=== PATIENT | male | born 1985 | race Hispanic/Latino ===

== ENCOUNTER 2021-11-24 13:57 | Emergency (ER) | payer SELFPAY ==
--- OUTSIDE RECORDS SUMMARY | 2021-11-24 14:00 | XMS REPORT | Continuity of Care Document ---
:1985 Author Organization [facility] Address [address] [place] [id number] Care Team Providers Name Role Phone [facility]LL[facility] Attending Clinician Unavailable Problems This patient has no known problems. Allergies, Adverse Reactions, Alerts This patient has no known allergies or adverse reactions. Medications This patient has no known medications. Procedures This patient has no known procedures. Encounters Start End Encounter Admission Attending Care Care Encounter Source Date/Time Date/Time Type Type Clinicians Facility Department ID 2020-06-20 2020-06-20 Outpatient [facility] RMLN [id number] [facility] Donovan 11:12:00 11:12:00 [id number] [facility] Results This patient has no known results.
[2021-11-24] MEDS ORDERED: IPRATROPIUM BROM 0.5MG/2.5ML ONE (14:47)
[2021-11-24] MEDS ORDERED: ALBUTEROL 2.5 MG/3 ML NEB SOL ONE (14:47)
--- NOTE | 2021-11-24 15:23 | RAD REPORT ---
EXAM DESCRIPTION: Lisa Single View11/24/2021 3:13 pm CLINICAL HISTORY: cough COMPARISON: none FINDINGS: The lungs appear clear of acute infiltrate. The heart is normal size IMPRESSION: No acute abnormalities displayed
--- NOTE | 2021-11-24 15:49 | EDPHYS ---
Physician Documentation [facility] Name: Raman Weiss Age: 36 yrs Sex: Male : 1985 Arrival Date: 11/24/2021 Time: 14:01 Bed 12 Private MD: ED Physician Berny Somers HPI: 11/24 15:44 This 36 yrs old Male presents to ER via Ambulatory with complaints of inhaled kb chemicals. 15:45 The patient has shortness of breath at rest, that occurred at home. Onset: The kb symptoms/episode began/occurred just prior to arrival. Duration: The symptoms are continuous. The patient's shortness of breath has no apparent modifying factors. Associated signs and symptoms: Pertinent positives: irritation in throat. Severity of symptoms: At their worst the symptoms were mild moderate in the emergency department the symptoms are unchanged. The patient has not experienced similar symptoms in the past. The patient has not recently seen a physician. Pt states he was using a lot of bleach to clean his mobile home and inhaled a lot of fumes. States he vomited once and has had some shortness of breath and irritation in his throat. . Historical: - Allergies: 14:18 No Known Allergies; ab2 - PMHx: 14:18 None; ab2 - PSHx: 14:18 None; ab2 - Immunization history:: Adult Immunizations up to date. - Social history:: Smoking status: Patient reports the use of cigarette tobacco products, smokes one pack cigarettes per day. ROS: 15:45 Constitutional: Negative for fever, chills, and weight loss. kb 15:45 ENT: Positive for throat irritation. 15:45 Respiratory: Positive for shortness of breath. 15:45 All other systems are negative. Exam: 15:47 Constitutional: This is a well developed, well nourished patient who is awake, alert, kb and in no acute distress. Head/Face: Normocephalic, atraumatic. ENT: Moist Mucous membranes Cardiovascular: Regular rate and rhythm with a normal S1 and S2. No gallops, murmurs, or rubs. No pulse deficits. Skin: Warm, dry with normal turgor. Normal color. MS/ Extremity: Pulses equal, no cyanosis. Neurovascular intact. Full, normal range of motion. Neuro: Awake and alert, GCS 15, oriented to person, place, time, and situation. Moves all extremities. Normal gait. Psych: Awake, alert, with orientation to person, place and time. Behavior, mood, and affect are within normal limits. 15:47 Respiratory: the patient does not display signs of respiratory distress, Respirations: normal, Breath sounds: wheezing: expiratory that is mild, is heard in the left posterior upper lobe and right posterior upper lobe. Vital Signs: 14:16 BP 129 / 72; Pulse 63; Resp 18; Temp 97.8; Pulse Ox 98% on R/A; Weight 122.47 kg; ab2 Height 5 ft. 10 in. (177.80 cm); Pain 7/10; 15:56 BP 121 / 73; Pulse 69; Resp 17; Pulse Ox 99% ; ab2 14:16 Body Mass Index 38.74 (122.47 kg, 177.80 cm) ab2 MDM: 14:34 Patient medically screened. kb 15:47 Data reviewed: vital signs, nurses notes. Data interpreted: Pulse oximetry: on room air kb is 98 %. Interpretation: normal. Counseling: I had a detailed discussion with the patient and/or guardian regarding: the historical points, exam findings, and any diagnostic results supporting the discharge/admit diagnosis, radiology results, the need for outpatient follow up, a family practitioner, to return to the emergency department if symptoms worsen or persist or if there are any questions or concerns that arise at home. 11/24 14:41 Order name: Chest Single View XRAY; Complete Time: 15:30 kb Administered Medications: 14:47 Drug: Albuterol 2.5 mg Route: Inhalation; ab2 15:00 Follow up: Response: No adverse reaction ab2 14:47 Drug: AtroVENT (ipratropium) Aerosol 0.5 mg Route: Inhalation; ab2 15:00 Follow up: Response: No adverse reaction ab2 Disposition Summary: 11/24/21 15:48 Discharge Ordered Location: Home Condition: Stable Diagnosis - Dyspnea - s/p bleach fume inhalation Followup: kb - With: Emergency Department - When: As needed - Reason: Worsening of condition Followup: kb - With: Private Physician - When: 2 - 3 days - Reason: Recheck today's complaints, Continuance of care, Re-evaluation by your physician Discharge Instructions: - Discharge Summary Sheet kb - Shortness of Breath, Adult, [id number] kb - Chemical Inhalation Injury, Adult kb Forms: - Medication Reconciliation Form kb - Thank You Letter kb - Antibiotic Education kb - Prescription Opioid Use kb Prescriptions: - albuterol sulfate 90 mcg/actuation Inhalation HFA aerosol inhaler - inhale 2 puff by INHALATION route every 4-6 hours As needed; 1 Inhaler; kb Refills: 0, Product Selection Permitted Addendum: 11/29/2021 18:59 Co-signature as Attending Physician, Berny Somers MD I agree with the assessment and c herring plan of care. Signatures: Dispatcher [employer] EDMaryanne Freitas, REGISTERED NURSES-C REGISTERED NURSES-Berny August MD MD cha Bleininger, Alexis ab2
--- NOTE | 2021-11-24 15:49 | ER ---
Nurse's Notes [facility] Name: Raman Weiss Age: 36 yrs Sex: Male : 1985 Arrival Date: 11/24/2021 Time: 14:01 Bed 12 Private MD: Diagnosis: Dyspnea-s/p bleach fume inhalation Presentation: 11/24 14:16 Chief complaint: Patient states: "I was doing some cleaning with bleach and I inhaled a ab2 bunch of it. Now my throat hurts and I feel SOB.". Coronavirus screen: Vaccine status: Patient reports receiving the 2nd dose of the covid vaccine. Client denies travel out of the [place] in the last 14 days. At this time, the client does not indicate any symptoms associated with coronavirus-19. Ebola Screen: Patient negative for fever greater than or equal to 101.5 degrees Fahrenheit, and additional compatible Ebola Virus Disease symptoms Patient denies exposure to infectious person. Patient denies travel to an Ebola-affected area in the 21 days before illness onset. No symptoms or risks identified at this time. Initial Sepsis Screen: Does the patient meet any 2 criteria? No. Patient's initial sepsis screen is negative. Does the patient have a suspected source of infection? No. Patient's initial sepsis screen is negative. Risk Assessment: Do you want to hurt yourself or someone else? Patient reports no desire to harm self or others. Onset of symptoms is unknown. 14:16 Method Of Arrival: Ambulatory ab2 14:16 Acuity: JOSE 4 ab2 Triage Assessment: 14:18 General: Appears in no apparent distress. uncomfortable, Behavior is calm, cooperative, ab2 appropriate for age. Pain: Complains of pain in throat Pain currently is 7 out of 10 on a pain scale. EENT: Reports pain in throat. Neuro: Level of Consciousness is awake, alert, obeys commands, Oriented to person, place, time, situation, Appropriate for age Editorial Manager are equal bilaterally Moves all extremities. Gait is steady, Speech is normal, Facial symmetry appears normal. Cardiovascular: Reports shortness of breath, Denies chest pain, Patient's skin is warm and dry. Respiratory: Airway is patent Respiratory effort is even, unlabored, Respiratory pattern is regular, symmetrical, Breath sounds with wheezes bilaterally. GI: No deficits noted. No signs and/or symptoms were reported involving the gastrointestinal system. : No deficits noted. No signs and/or symptoms were reported regarding the genitourinary system. Historical: - Allergies: 14:18 No Known Allergies; ab2 - PMHx: 14:18 None; ab2 - PSHx: 14:18 None; ab2 - Immunization history:: Adult Immunizations up to date. - Social history:: Smoking status: Patient reports the use of cigarette tobacco products, smokes one pack cigarettes per day. Screenin:46 Abuse screen: Denies threats or abuse. Denies injuries from another. Nutritional ab2 screening: No deficits noted. Tuberculosis screening: No symptoms or risk factors identified. Fall Risk None identified. Assessment: 14:45 General: Appears in no apparent distress. uncomfortable, Behavior is calm, cooperative, ab2 appropriate for age. Pain: Complains of pain in throat Pain currently is 7 out of 10 on a pain scale. Neuro: Level of Consciousness is awake, alert, obeys commands, Oriented to person, place, time, situation, Appropriate for age Editorial Manager are equal bilaterally Moves all extremities. Gait is steady, Speech is normal, Facial symmetry appears normal. Cardiovascular: Reports shortness of breath, Denies chest pain. Respiratory: Airway is patent Respiratory effort is even, unlabored, Respiratory pattern is regular, symmetrical, Breath sounds with wheezes bilaterally. GI: No deficits noted. No signs and/or symptoms were reported involving the gastrointestinal system. Abdomen is round non-distended. : No deficits noted. No signs and/or symptoms were reported regarding the genitourinary system. Derm: Skin is intact, is healthy with good turgor, Skin is pink, warm \\T\\ dry. Vital Signs: 14:16 BP 129 / 72; Pulse 63; Resp 18; Temp 97.8; Pulse Ox 98% on R/A; Weight 122.47 kg; ab2 Height 5 ft. 10 in. (177.80 cm); Pain 7/10; 15:56 BP 121 / 73; Pulse 69; Resp 17; Pulse Ox 99% ; ab2 14:16 Body Mass Index 38.74 (122.47 kg, 177.80 cm) ab2 ED Course: 14:01 Patient arrived in ED. mr 14:18 Triage completed. ab2 14:19 Arm band placed on right wrist. ab2 14:20 Maryanne Lewis FNP-C is PHCP. kb 14:20 Berny Somers MD is Attending Physician. kb 14:45 Remi Mai is Primary Nurse. ab2 14:46 No provider procedures requiring assistance completed. Patient did not have IV access ab2 during this emergency room visit. 14:47 Patient has correct armband on for positive identification. Bed in low position. Call ab2 light in reach. Side rails up X2. 15:15 Chest Single View XRAY In Process Unspecified. EDMS Administered Medications: 14:47 Drug: Albuterol 2.5 mg Route: Inhalation; ab2 15:00 Follow up: Response: No adverse reaction ab2 14:47 Drug: AtroVENT (ipratropium) Aerosol 0.5 mg Route: Inhalation; ab2 15:00 Follow up: Response: No adverse reaction ab2 Outcome: 15:48 Discharge ordered by MD. kb 15:56 Discharged to home ambulatory. ab2 15:56 Condition: good 15:56 Discharge instructions given to patient, Instructed on discharge instructions, follow up and referral plans. medication usage, Demonstrated understanding of instructions, follow-up care, medications, Prescriptions given X 1. 15:56 Patient left the ED. ab2 Signatures: Dispatcher [employer] EDMS Maryanne Lewis FNP-C LEAD SHOP OPERATOR-Ckb Wendy Davidson Remi Mai ab2 Corrections: (The following items were deleted from the chart) 14:34 14:16 Acuity: JOSE 3 ab2 ab2 14:42 14:18 Respiratory: Airway is patent Respiratory effort is even, unlabored, Respiratory ab2 pattern is regular, symmetrical, Breath sounds are clear bilaterally. ab2
[2021-11-24 20:51] VITALS: TEMP 97.8
[2021-11-24 20:52] VITALS: BP 121/73; O2SAT 99
== END 2021-11-24 15:56 | disposition home or self-care (01) ==
LOC: ER 13:57
DX: R06.00 Dyspnea, unspecified (principal); T54.91XA Toxic effect of unspecified corrosive substance, accidental (unintentional), initial encounter; Y92.9 Unspecified place or not applicable; F17.210 Nicotine dependence, cigarettes, uncomplicated
CPT/HCPCS: 71045; 99284